=== PATIENT | male | born 1990 | race Caucasian/White ===

== ENCOUNTER → 2018-04-01 | Outpatient (CLI) | payer OTHER | LOC: COL.RAD 07:28 | DX: J98.59 Other diseases of mediastinum, not elsewhere classified (principal) | CPT/HCPCS: Q9967 ==

== ENCOUNTER → 2018-05-09 | Outpatient (CLI) | payer OTHER | LOC: COL.RAD 13:38 | DX: R22.2 Localized swelling, mass and lump, trunk (principal); Z98.890 Other specified postprocedural states ==